=== PATIENT | female | born 1950 | race Caucasian/White ===

== ENCOUNTER 2019-01-08 14:03 | Inpatient (IN) | payer MEDICARE, BC ==
[~2019-01-08] VITALS: Ht 172.7 cm; Wt 57.2 kg
[2019-01-08] VITALS (7 sets, daily range): BP systolic 115–144; BP diastolic 50–69; BMI 19.2
[2019-01-08] MEDS ORDERED: HYDROCHLOROTHIA25 MG PO (14:10)
[2019-01-08] MEDS ORDERED: OXYBUTYNIN CHLOR5 MG PO (14:10)
[2019-01-08] MEDS ORDERED: PROZAC10 MG PO (14:10)
[2019-01-08] MEDS ORDERED: REMERON15 MG PO (14:11)
[2019-01-08] MEDS ORDERED: VALIUM5 MG PO (14:11)
[2019-01-08] MEDS ORDERED: LISINOPRIL20 MG PO (14:11)
[2019-01-08] MEDS ORDERED: TRAZODONE HCL150 MG PO (14:12)
[2019-01-08] MEDS ORDERED: HYDROCODON-ACE1 EAC7 PO (14:13)
--- NOTE | 2019-01-08 14:18 | NUR ---
THE PATIENT WAS FOUND WITH EMPTY BOTTLES OF TRAZODONE AND LISINOPRIL WELL A BOTTLE OF HYDROCODONE THAT IS FULL, THIS IS PER THE FAMILY. THE FAMILY STATES THAT THE PATIENT WAS ASKING FOR HER MEDS TO BE REFILLED, ACCORDING TO DATES ON THE BOTTLES THE PILLS DO ACTUALLY NEED TO BE REFILLED AND SHOULD BE GONE BY NOW. THE FAMILY GOES ON TO STATE THAT THE PATIENT HAS BEEN SUFFERING FROM DEPRESSION RECENTLY AND WAS FOUND WITH VOMIT AND STOOL ON HER ON THE FLOOOR.
[2019-01-08 14:59] LABS: BASOPHILS 0.1 % (0-2); EOSINOPHILS 0 % (0-7); HEMATOCRIT 41.2 % (36.0-48.0); HEMOGLOBIN 15.5 g/dL (12-16); IMMATURE GRANULOCYTES 0.3 % (0-5); LYMPHOCYTES 3.6 % (15-50); MCH 31.2 pg (26.0-34.0); MCHC 37.6 g/dL (31.0-37.0); MCV 82.9 fL (80.0-100.0); MEAN PLATELET VOLUME 9.9 fL (7.4-10.4); MONOCYTES 5.2 % (2-11); NEUTROPHILS 90.8 % (40-80); PLATELET COUNT 204 10x3/uL (130-400); RBC 4.97 10x6/uL (4.00-5.40); RDW 12.1 % (11.5-14.5)
[2019-01-08 15:06] LABS: APPEARANCE CLEAR (CLEAR); BILIRUBIN NEGATIVE (NEGATIVE); COLOR YELLOW (YELLOW); GLUCOSE 250 mg/dL (NEGATIVE); KETONE NEGATIVE (NEGATIVE); NITRITE NEGATIVE (NEGATIVE); PROTEIN NEGATIVE (NEGATIVE); SPECIFIC GRAVITY 1.015 (1.005-1.020); UROBILINOGEN NORMAL (NORMAL)
[2019-01-08 15:09] LABS: BACTERIA FEW /hpf (NONE SEEN); EPITHELIAL CELLS 0-5 /hpf (0-5); RED CELLS - URINE 0-5 /hpf (0-5); WHITE CELLS - URINE OCC /hpf (0-5)
[2019-01-08 15:15] LABS: ALKALINE PHOSPHATASE 72 U/L (46-116); ALT (SGPT) 24 U/L (10-68); BILIRUBIN - TOTAL 0.47 mg/dL (0.2-1.3); CALC OSMOLALITY 262 mosm/kg (275-300); CALCIUM 8.3 mg/dL (8.5-10.1); CARBON DIOXIDE 23.7 mmol/L (21.0-32.0); CHLORIDE - SERUM 91 mmol/L (98-107); CREATININE - SERUM 0.8 mg/dL (0.6-1.3); GLUCOSE 218 mg/dL (74-106); MAGNESIUM - SERUM 1.7 mg/dL (1.8-2.4); PROTEIN - SERUM 7.3 g/dL (6.4-8.2); SODIUM 127 mmol/L (136-145); UREA NITROGEN 15 mg/dL (7-18); eGFR NON AFRICAN AMERICAN 75 mL/min (90-120)
[2019-01-08 15:16] LABS: UDS - AMPHET NEGATIVE QUAL (NEGATIVE); UDS - BARB NEGATIVE QUAL (NEGATIVE); UDS - BENZO POSITIVE QUAL (NEGATIVE); UDS - COCAINE NEGATIVE QUAL (NEGATIVE); UDS - OPIATE NEGATIVE QUAL (NEGATIVE); UDS - PCP NEGATIVE QUAL (NEGATIVE); UDS - THC NEGATIVE QUAL (NEGATIVE)
[2019-01-08 15:20] LABS: POTASSIUM - SERUM 2.5 mmol/L (3.5-5.1)
[2019-01-08 16:04] LABS: CKMB 2.9 U/L (0.0-3.6); CREATINE KINASE 105 UL (21-215); TROPONIN-I 0.024 ng/mL (0.000-0.060)
--- NOTE | 2019-01-08 16:27 | NUR ---
FLU SWAB OBTAINED, LABELED AT BS AND SENT TO [facility]
--- NOTE | 2019-01-08 17:20 | NUR ---
VERIFIED D5LR ORDER WITH DR GUZMAN. INFORMED OF ELEVATED GLUCOSE AND + GLUCOSE IN URINE. DR GUZMAN ORDERED INSULIN AND CONTINUE WITH D5LR.
--- NOTE | 2019-01-08 17:40 | NUR ---
RIGHT NARE NGT REMOVED
--- NOTE | 2019-01-08 17:46 | NUR ---
SBAR REPORT GIVEN TO MARTHA KOHLER
--- NOTE | 2019-01-08 19:50 | NUR ---
PT RESTING QUIETLY. CALL LIGHT IN REACH. PT DENIES NEEDS OR PAIN AT THIS TIME. PT IS DROWSY BUT EASY TO AROUSE. LUNGS CLEAR. BOWEL ACTIVE X4. A/O X4. BED IN LOW. SIDE RAILS X2. BED ALARM ON. WILL CONTINUE TO MONITOR.
--- NOTE | 2019-01-09 | NUR ---
PT TEMP WAS 100.6. APPLIED COLD PACKS TO ARMPITS AND REMOVED 2 BLANKETS. PT STILL HAS ONE BLANKET ONE. WILL RECHECK IN ONE HOUR.
[2019-01-09 00:15] VITALS: BP 122/60
--- NOTE | 2019-01-09 01:30 | NUR ---
TEMP WAS 99.3.
--- NOTE | 2019-01-09 02:21 | NUR ---
I have reviewed this patient and I concur with the Shift Assessment completed by the Licensed Practical Nurse today this shift.
[2019-01-09 04:46] VITALS: BP 126/44
--- NOTE | 2019-01-09 05:11 | NUR ---
PT TEMP WAS 100.3. NEW ICE PACKS WERE PLACED UNDER ARMPITS. WILL RECHECK IN AN HOUR. ASSISTED TO BATHROOM AND BACK. WCTM
--- NOTE | 2019-01-09 06:29 | NUR ---
TEMP 98.9 AFTER APPLYING COLD PACKS
--- NOTE | 2019-01-09 08:30 | NUR ---
UP TO BR WITH MIN ASSIST OF ONE. GAIT STEADY. STATED SHE JUST FELT WEAK. VOIDED WITHOUT DIFFICULTY. REPOSITIONED IN BED FOR COMFORT.
--- NOTE | 2019-01-09 09:15 | NUR ---
OFF UNIT VIA FOR MRI
[2019-01-09 09:33] VITALS: BP 146/67
--- NOTE | 2019-01-09 10:04 | NUR ---
RETURNED FROM MRI. DENIES NEEDS. UP TO BR WITH ONE PERSON MIN ASSIST. BREAKFAST SERVED INROOM.
--- NOTE | 2019-01-09 10:17 | NUR ---
RESTING QUIETLY IN BED. FAMILY AT BEDSIDE. LUNGS ARE CLEAR BILATERALLY BUT SLIGHTLY DIMINISHED IN LOWER LOBES. REPORTED OCCASSIONALLY PRODUCTIVE COUGH WITH CLEAR SPUTUM. IV TO LEFT FOREARM IS PATENT WITHOUT REDNESS AT INSERTION SITE. DENIES NEEDS. FAMILY AT BEDSIDE.
[2019-01-09 10:23] VITALS: BMI 19.1
[2019-01-09 10:36] VITALS: Ht 172.7 cm; Wt 57.2 kg
[2019-01-09 11:20] LABS: CALC OSMOLALITY 265 mosm/kg (275-300); CALCIUM 8.9 mg/dL (8.5-10.1); CARBON DIOXIDE 25.9 mmol/L (21.0-32.0); CHLORIDE - SERUM 98 mmol/L (98-107); CREATININE - SERUM 0.8 mg/dL (0.6-1.3); GLUCOSE 131 mg/dL (74-106); MAGNESIUM - SERUM 1.7 mg/dL (1.8-2.4); POTASSIUM - SERUM 3.1 mmol/L (3.5-5.1); SODIUM 133 mmol/L (136-145); UREA NITROGEN 8 mg/dL (7-18); eGFR NON AFRICAN AMERICAN 75 mL/min (90-120)
[2019-01-09 11:24] LABS: BASOPHILS 0 % (0-2); EOSINOPHILS 0.2 % (0-7); HEMATOCRIT 38.7 % (36.0-48.0); HEMOGLOBIN 14.1 g/dL (12-16); MCH 30.7 pg (26.0-34.0); MCHC 36.4 g/dL (31.0-37.0); MCV 84.1 fL (80.0-100.0); MEAN PLATELET VOLUME 9.9 fL (7.4-10.4); MONOCYTES 9.3 % (2-11); NEUTROPHILS 77.5 % (40-80); PLATELET COUNT 196 10x3/uL (130-400); RDW 12.3 % (11.5-14.5)
[2019-01-09 11:34] LABS: WBC 5.7 10x3/uL (4.8-10.8)
[2019-01-09 12:04] VITALS: BP 145/80
[2019-01-09 18:15] VITALS: BP 143/49
[2019-01-09] MEDS ORDERED: SYNTHROID75 MCG PO (19:06)
--- NOTE | 2019-01-09 19:25 | NUR ---
AAOX4. WHEN ENTERING ROOM. PT STATES SHE HAS BEEN RESTING WELL. DENIES VOMITTING SINCE "SATURDAY". DENIES ABDOMINAL PAIN AT THIS TIME. HAT IN RESTROOM AND SPOKE WITH PT ABOUT OBTAINING STOOL SAMPLE. PT VERBALIZED UNDERSTANDING. LEFT FOREARM IV IS SALINE LOCKED. NO REDNESS. PT ASKS NOT TO BE WOKEN UP IN THE NIGHT. CALL LIGHT IN HAND.
[2019-01-09 20:27] VITALS: BP 131/45
--- NOTE | 2019-01-09 20:56 | NUR ---
VITAL SIGNS PRESENT WITH 99.4 TEMPERATURE. ADMINISTERED 650 MG PRN TYLENOL. PT TOLERATED WELL. SON AND DAUGHTER AT BEDSIDE. DENIES NEEDS AT THIS TIME.
--- NOTE | 2019-01-10 04:11 | NUR ---
I have reviewed this patient and I concur with the Shift Assessment completed by the Licensed Practical Nurse today this shift.
[2019-01-10 05:28] VITALS: BP 130/77
[2019-01-10 06:54] LABS: BASOPHILS 0.6 % (0-2); EOSINOPHILS 0.2 % (0-7); HEMATOCRIT 39.8 % (36.0-48.0); HEMOGLOBIN 14.1 g/dL (12-16); IMMATURE GRANULOCYTES 0.2 % (0-5); LYMPHOCYTES 21.4 % (15-50); MCH 30.7 pg (26.0-34.0); MCHC 35.4 g/dL (31.0-37.0); MEAN PLATELET VOLUME 10.3 fL (7.4-10.4); MONOCYTES 9.5 % (2-11); NEUTROPHILS 68.1 % (40-80); PLATELET COUNT 191 10x3/uL (130-400); RBC 4.59 10x6/uL (4.00-5.40); RDW 12.7 % (11.5-14.5)
[2019-01-10 06:59] LABS: MCV 86.7 fL (80.0-100.0)
[2019-01-10 07:08] LABS: CALCIUM 8.7 mg/dL (8.5-10.1); CARBON DIOXIDE 27.9 mmol/L (21.0-32.0); CHLORIDE - SERUM 103 mmol/L (98-107); CREATININE - SERUM 0.8 mg/dL (0.6-1.3); GLUCOSE 94 mg/dL (74-106); SODIUM 138 mmol/L (136-145); eGFR NON AFRICAN AMERICAN 75 mL/min (90-120)
[2019-01-10 07:12] LABS: CALC OSMOLALITY 275 mosm/kg (275-300); POTASSIUM - SERUM 3.9 mmol/L (3.5-5.1); UREA NITROGEN 12 mg/dL (7-18)
[2019-01-10 07:49] VITALS: BP 150/73
--- NOTE | 2019-01-10 08:01 | NUR ---
RESUMING PT CARE, PT LAYING IN BED WITH EYES OPEN, ALERT AND ORIENTED X3, CALL LIGHT IN REACH. WILL CONTINUE TO MONITOR AND FOLLOW PLAN OF CARE.
[2019-01-10 11:21] VITALS: BP 136/67
--- NOTE | 2019-01-10 14:26 | MORECARE ---
CASE MANAGEMENT DISCHARGE SUMMARY PATIENT: JAVON MALIK UNIT: [id number] ADM DATE: 01/09/19 AGE: 68 : 49 SEX: F ROOM/BED: D.1207 AUTHOR: JACLYN SHOEMAKER PHYSICIAN: REFERRING PHYSICIAN: ALANA GARCIA MD DATE OF SERVICE: 01/10/19 Discharge Plan Patient Name: JAVON MALIK Facility: [facility]:[place] : 1950 Planned Disposition: Home Anticipated Discharge Date: Discharge Date: Expected LOS: Initial Reviewer: [email or web address] Initial Review Date: 01/10/2019 Generated: 01/10/19 3:26 pm Patient Name: JAVON MALIK Page [phone] at 1426 All edits/amendments must be made on the electronic document DICTATION DATE: 01/10/19 142 CRINKLING MACHINE OPERATOR: ZULEIKA 01/10/19 1426 RPT#: [id number] DC DATE: STATUS: ADM IN [facility] [address] [place] [address] END OF REPORT
--- NOTE | 2019-01-10 14:34 | MORECARE ---
CASE MANAGEMENT DISCHARGE SUMMARY PATIENT: JAVON RIVERO UNIT: [id number] ADM DATE: 01/09/19 AGE: 68 : 49 SEX: F ROOM/BED: D.1207 AUTHOR: NAVID,DOC PHYSICIAN: REFERRING PHYSICIAN: ALANA GARCIA MD DATE OF SERVICE: 01/10/19 Discharge Plan Patient Name: JAVON RIVERO Facility: [facility]:[place] : 1950 Planned Disposition: Home Anticipated Discharge Date: Discharge Date: Expected LOS: Initial Reviewer: [email or web address] Initial Review Date: 01/10/2019 Generated: 01/10/19 3:34 pm Comments DCP- Discharge Planning Updated by [email or web address]: Katie Calderón on 01/10/19 1:[address] Patient Name: JAVON RIVERO Admission Status: ER Accout number: [id number] Admission Date: 01-09-2019 : 1950 Admission Diagnosis: Attending: ALANA GARCIA Current LOS: 1 Anticipated DC Date: Planned Disposition: Home Primary Insurance: MEDICARE A & B Discharge Planning Comments: CM met with patient about discharge planning. CM explained CM role and verbal consent was given to do dc assessment. CM educated on Home Health , DME and rehab services that are available. Patient states her discharge plan is to return to home with spouse. States home environment is safe. Denies any discharge planning needs at this time. States codi Robert [phone]) will drive her home upon discharge. CM will continue to follow and assist as needed with discharge planning needs. Trim Mechanic: Katie Calderón DCPIA - Discharge Planning Initial Assessment Updated by [email or web address]: Katie Calderón on 01/10/19 2:29 pm * Is the patient Alert and Oriented? Yes * How many steps to enter\exit or inside your home? * PCP DR JEFFERSON * Pharmacy [facility] [place] * Preadmission Environment Home with Family * ADLs Independent * List name and contact numbers for known caregivers / representatives who currently or will assist patient after discharge: Codi Rivero [phone] * Verbal permission to speak to the caregivers and representatives has been obtained from the patient. Yes * Community resources currently utilized None * Additional services required to return to the preadmission environment? No * Can the patient safely return to the preadmission environment? Yes * Has this patient been hospitalized within the prior 30 days at any hospital? No Last DP export: 01/10/19 1:26 p Patient Name: JAVON RIVERO Page [phone] at 1434 All edits/amendments must be made on the electronic document DICTATION DATE: 01/10/191432 SALES COORDINATOR: ZULEIKA 01/10/191432 RPT#: [id number] DC DATE: STATUS: ADM IN [facility] [address] [place] [address] END OF REPORT
--- NOTE | 2019-01-10 14:49 | NUR ---
RESTING QUIETLY IN BED. CALL LIGHT WITHIN REACH. DENIES ANY NEEDS AT THIS TIME.
[2019-01-10 15:38] VITALS: BP 130/65
--- NOTE | 2019-01-10 19:30 | NUR ---
ALERT AND ORIENTED. STATES "I HAD A BETTER DAY TODAY." INSTRUCTED PT ON STOOL SAMPLES. VERBALIZES UNDERSTANDING. SALINE LOCKED IV TO THE LEFT FOREARM. DENIES NEEDS. V/S/S AT THIS TIME. CALL LIGHT IN REACH OF PATIENT.
[2019-01-10 20:01] VITALS: BP 148/70
[2019-01-11] VITALS: BP 118/50
[2019-01-11 00:50] VITALS: BP 118/50
--- NOTE | 2019-01-11 01:18 | NUR ---
I have reviewed this patient and I concur with the Shift Assessment completed by the Licensed Practical Nurse today this shift.
--- NOTE | 2019-01-11 04:49 | NUR ---
PT RESTING WHEN ENTERING THE ROOM. AROUSES TO VERBAL STIMULI. DENIES NEEDS AT THIS TIME. CALL LIGHT IN REACH.
[2019-01-11 05:00] VITALS: BP 165/87
[2019-01-11 06:21] LABS: BASOPHILS 0.4 % (0-2); EOSINOPHILS 0.9 % (0-7); HEMATOCRIT 39.1 % (36.0-48.0); HEMOGLOBIN 13.8 g/dL (12-16); IMMATURE GRANULOCYTES 0.2 % (0-5); LYMPHOCYTES 22.1 % (15-50); MCH 30.7 pg (26.0-34.0); MCHC 35.3 g/dL (31.0-37.0); MCV 87.1 fL (80.0-100.0); MEAN PLATELET VOLUME 10.1 fL (7.4-10.4); MONOCYTES 8.9 % (2-11); NEUTROPHILS 67.5 % (40-80); PLATELET COUNT 180 10x3/uL (130-400); RBC 4.49 10x6/uL (4.00-5.40); RDW 12.6 % (11.5-14.5); WBC 5.5 10x3/uL (4.8-10.8)
[2019-01-11 06:33] LABS: ANION GAP 8.8 mmol/L (8-16); CALCIUM 8.5 mg/dL (8.5-10.1); CARBON DIOXIDE 29.9 mmol/L (21.0-32.0); CREATININE - SERUM 0.9 mg/dL (0.6-1.3); POTASSIUM - SERUM 3.7 mmol/L (3.5-5.1)
--- NOTE | 2019-01-11 08:00 | NUR ---
PATIENT ALERT AND OREINTED THIS MORNING. ATE 100% OF BREAKFAST. NO COMPLAINTS OF PAIN OR DISCOMFORT. SALINE LOCK TO LEFT FOREARM PATENT. ASKING ABOUT GOING HOME TODAY. TOLD HER WOULD CHECK AND SEE IF THIS WAS POSSIBLE. CALL LIGHT WITHIN REACH. WILL CONTINUE TO MONITOR.
[2019-01-11 08:09] VITALS: BP 160/88
[2019-01-11] MEDS ORDERED: LEVOFLOXACIN500 MG PO (08:54)
--- NOTE | 2019-01-11 10:05 | NUR ---
PT'S PHARMACY CLOSED TODAY. RX FOR LEVAQUIN CALLED TO [facility].
--- NOTE | 2019-01-11 11:00 | NUR ---
PATIENT TO BE DISCHARGED. DISCHARGE INSTRUCTIONS GIVEN. LIST OF MEDICATIONS GIVEN AND INFORMED HER THAT HER ANTIBIOTIC WAS CALLED IN TO [facility].
--- NOTE | 2019-01-11 11:15 | NUR ---
PATIENT DISCHARGED FROM UNIT VIA WHEELCHAIR ACCOMPAINED BY HOSPITAL STAFF. HERE TO TAKE HER HOME.
[2019-01-12] MEDS ORDERED: PROZAC10 MG PO (15:06)
[2019-01-12] MEDS ORDERED: PROZAC10 MG (15:08)
== END 2019-01-11 11:15 | disposition home or self-care (01) | DRG 640 ==
LOC: D.ER 14:03 → D.M3 17:22 → OBSVTIME 17:22 → D.EDHOLD 18:21 → D.M3 18:22
PROVIDERS: Emergency Medicine; ADMIT Internal Medicine Nephrology; ATTEND Internal Medicine Nephrology
DX: E87.1 Hypo-osmolality and hyponatremia (principal); K76.3 Infarction of liver; G93.41 Metabolic encephalopathy; N39.0 Urinary tract infection, site not specified; F17.213 Nicotine dependence, cigarettes, with withdrawal; R55 Syncope and collapse; R73.9 Hyperglycemia, unspecified; E87.6 Hypokalemia; E83.42 Hypomagnesemia; E86.0 Dehydration

== ENCOUNTER 2019-01-12 14:18 | Inpatient (IN) | payer MEDICARE, BC ==
[~2019-01-12 14:18] MED LIST: HYDROCHLOROTHIA25 MG PO; HYDROCODON-ACE1 EAC7 PO; LEVOFLOXACIN500 MG PO; LISINOPRIL20 MG PO; OXYBUTYNIN CHLOR5 MG PO; PROZAC10 MG PO; REMERON15 MG PO; SYNTHROID75 MCG PO; TRAZODONE HCL150 MG PO; VALIUM5 MG PO
--- NOTE | 2019-01-12 14:25 | NUR ---
PT IS ADMITTED TO RESIDENTIAL DUE TO SUICIDAL IDEATION. PT TOOK TWO BOTTLES OF [place] MEDICATIONS AT HOME PER PT AND PT'S FAMILY. PT IS ALERT AND ORIENTED X 4. PT. HAS HX OF SEVERE ANXIETY AND DEPRESSION. PT CODEWORD IS KATHERINE3. PT IS FULL CODE AT THIS TIME. PT STATES WANTS TO DISCUSS CODE STATUS WITH FAMILY DURING VISITATION TOMORROW. PT APPEARED VERY ANXIOUS UPON ARRIVAL TO UNIT. TOUR OF UNIT PROVIDED TO PT AND FAMILY. ADMIT PACKET DISCUSSED AND REVIEWED WITH PT. AND FAMILY. WILL CPOC.
[2019-01-12] MEDS ORDERED: PROZAC10 MG PO (15:06)
[2019-01-12] MEDS ORDERED: PROZAC10 MG (15:08)
[2019-01-12 15:30] LABS: BASOPHILS 0.3 % (0-2); EOSINOPHILS 0.2 % (0-7); HEMATOCRIT 42.2 % (36.0-48.0); HEMOGLOBIN 15.5 g/dL (12-16); IMMATURE GRANULOCYTES 0.2 % (0-5); LYMPHOCYTES 9.5 % (15-50); MCHC 36.7 g/dL (31.0-37.0); MEAN PLATELET VOLUME 9.8 fL (7.4-10.4); MONOCYTES 8.7 % (2-11); NEUTROPHILS 81.1 % (40-80)
[2019-01-12 15:49] LABS: MCV 84.4 fL (80.0-100.0); PLATELET COUNT 232 10x3/uL (130-400); WBC 8.7 10x3/uL (4.8-10.8)
[2019-01-12 15:50] VITALS: BP 152/99; BMI 19.6
[2019-01-12 16:00] LABS: ALBUMIN 4.1 g/dL (3.4-5.0); ANION GAP 15.8 mmol/L (8-16); BILIRUBIN - TOTAL 0.47 mg/dL (0.2-1.3); CALCIUM 9.3 mg/dL (8.5-10.1); CARBON DIOXIDE 26.3 mmol/L (21.0-32.0); CHOL - HDL RATIO 2.9 ratio (2.3-4.1); CREATININE - SERUM 0.9 mg/dL (0.6-1.3); LDL-HDL RATIO 1.6 ratio (1.5-3.5); PROTEIN - SERUM 7.2 g/dL (6.4-8.2); THYROID STIMULATING HORMONE 4.53 uIU/mL (0.36-3.74)
[2019-01-12 16:01] LABS: POTASSIUM - SERUM 3.1 mmol/L (3.5-5.1)
[2019-01-12 20:22] VITALS: BP 147/84
--- NOTE | 2019-01-12 21:32 | NUR ---
RECEIVED IN PATIENT ROOM. GETTING READY FOR BED. CALM AND COOPERATIVE WITH CARE AND ASSESSMENT. DENIES THOUGHTS OF SELF HARM AT THIS TIME. REDIRECT AND REORIENT NEEDED. RESTING IN BED WITH EYES CLOSED AT THIS TIME. CONTINUE PLAN OF CARE.
[2019-01-13 07:22] LABS: RAPID PLASMA REAGIN Non Reactive (Non Reactive); VITAMIN D 25 HYDROXY 26.8 ng/mL (30.0-100.0)
--- NOTE | 2019-01-13 08:00 | NUR ---
REC'D PT AWKAE IN ROOM. ALERT AND ORIENTED X 4. CALM AND COOPERATIVE WITH ASSESSMENT. PT DENIES ANY SELF HARM AT THIS TIME. REDIRECT AND REORIENT NEEDED. MED COMPLIANT. FALL PRECAUTIONS IN PLACE. WILL CPOC.
[2019-01-13 08:15] VITALS: BP 156/75
[2019-01-13 08:24] VITALS: BMI 19.6
[2019-01-13 10:00] VITALS: BMI 19.5
[2019-01-13 10:14] LABS: FOLATE (FOLIC ACID) - SERUM 18.6 ng/mL (>3.0)
--- NOTE | 2019-01-13 10:52 | NUR ---
ATTEMPTED TO CALL AND DAUGHTER TO BRING PT HARD SOLE SHOES, NO ANSWER. THIS NURSE PROVIDED PT WITH SLIPPER SOCKS AND LOCKED FLIP FLOPS IN STORAGE ROOM FOR SAFETY. FALL EDUCATION PROVIDED PER STAFF. WILL CPOC.
[2019-01-13 20:21] VITALS: BP 123/73
--- NOTE | 2019-01-14 00:23 | NUR ---
RECEIVED IN DAYROOM. SOCIALIZING WITH PEERS. CALM AND COOPERATIVE WITH CARE AND ASSESSMENT. DENIES THOUGHTS OF SELF HARM. REDIRECT AND REORIENT NEEDED. RESTING IN BED WITH EYES CLOSED AT THIS TIME. CONTINUE PLAN OF CARE.
--- NOTE | 2019-01-14 07:30 | NUR ---
REC'D PT IN BED RESTING WITH EYES OPEN. ALERT AND ORIENTED X 4. CALM AND COOPERATIVE WITH ASSESSMENT. NO SI NOTED OR VOICED. PT DENIES ANY FEELINGS OF SELF HARM. MED COMPLIANT. FALL PRECAUTIONS IN PLACE. WILL CPOC.
[2019-01-14 08:19] VITALS: BP 147/87
--- NOTE | 2019-01-14 16:38 | PSY ---
PATIENT NAME:JAVON MALIK MEDICAL RECORD: [id number] : [birth year] LOCATION:[facility] ADMISSION DATE: 01/12/19 ACCOUNT: [id number] PSYCHIATRIC EVALUATION DATE OF EVALUATION: 01/12/19 IDENTIFYING DATA: The patient is 68 years old and she is admitted to the hospital on a voluntary basis. CHIEF COMPLAINT: Depression. HISTORY OF PRESENT ILLNESS: The patient is a very nice lady who is displaying a high degree of distress. She is followed on an outpatient basis by my friend and colleague, Dr. Maria De Jesus Stevenson, in [place]. Dr. Stevenson has been seeing her for therapy and pharmacologic management. Dr. Stevenson called me last week and told me this patient was going to be showing up in the Emergency Room with an overdose. I never heard from the patient. As it turns out, she actually did show up in the Emergency Room, but she did not tell the Emergency Room doctor that she had taken an overdose, so she was simply admitted to the hospital because of nausea, vomiting, and diarrhea. Apparently, she had been found lying on the floor by her . There were some empty pill bottles in her hand and she was lethargic, but the patient said she was not trying to overdose and she was trying to call the pharmacy to have the medicines refilled. At any rate, she was hospitalized here and apparently presented well enough and convincingly enough that mental health was not contacted. The patient tells me now that she did try to overdose and kill herself on and is very ashamed and tearful about the situation. After being discharged from the hospital, her family was calling, saying she was curled up in a ball in the corner, crying, shaking, and talking about wanting to . They called Dr. Stevenson, who called me and I told her I would accept her as an inpatient. The patient admits to all of this. She endorses numerous vegetative depressive symptoms and is extremely anxious. She is shaking visibly. She is slightly hypertensive, but is not tachycardic. She is not febrile. She is denying any overt psychotic symptoms. PAST MEDICAL HISTORY: Significant for hypertension. She also has history of hypothyroidism, and has had a cholecystectomy and a hysterectomy. PAST PSYCHIATRIC HISTORY: Significant for a previous episode of severe depression in 1994. She did not require hospitalization at that time. She was stabilized on an outpatient basis. Her psychiatrist retired and then she did not begin seeing another one, and her primary care physician took over prescribing her medicines. FAMILY HISTORY: Significant for hypertension and cardiovascular disease. ALLERGIES: ERYTHROMYCIN. CURRENT MEDICATIONS: Include Ditropan, Prozac, hydrochlorothiazide, Remeron, Valium, lisinopril, trazodone, and hydrocodone. MENTAL STATUS EXAMINATION: The patient is awake; alert; and oriented to person, place, time, and situation. Her mood is depressed. Her affect is constricted. Thought processes are circumstantial. Memory, concentration, and abstraction abilities are mildly impaired. She denies any active intent to harm herself or others as well as any psychotic symptoms. SOCIAL HISTORY: The patient is . She has 3 adult children, 2 boys and a daughter, all of whom live in this area. 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 She has no history of drug or alcohol abuse and apparently functioned well socially and occupationally. ASSETS: Supportive family members. LIABILITIES: Limited insight. DIAGNOSTIC IMPRESSION: AXIS I: 1. Major depression, severe, recurrent without psychotic features. 2. Generalized anxiety disorder. AXIS II: Cluster C personality traits. AXIS III: Hypertension and hypothyroidism. AXIS IV: Moderate. AXIS V: Global assessment of functioning is 40. PLAN: At this time, the patient is admitted to the hospital secondary to a recent suicide attempt, ongoing thoughts of self-harm, and overwhelming anxiety and depression. She will be comprehensively evaluated and treated from both medical, psychological, and social standpoint. Her long-term prognosis is guarded. TRANSINT:[id number] Voice Confirmation ID: [id number] DOCUMENT ID: [id number] JANET DAS MD at 1638 CC: [id number] DICTATION DATE: 01/12/19 1717 POLICE OR PATROL PARK OFFICER: 01/12/19 1750 ADM IN [place] [address] [place] [address]
--- NOTE | 2019-01-14 16:38 | PN ---
PATIENT:JAVON MALIK MEDICAL RECORD: [id number] LOCATION:[facility] ADMISSION DATE: 01/12/19 PROGRESS NOTE DATE OF SERVICE: 01/13/2019 SUBJECTIVE: The patient's case was discussed with staff. She has no new complaint. OBJECTIVE: The patient is dramatically better. She slept last night. She ate a good dinner and a good breakfast. She is not shaking. She is talking to me in old coherent sentences. ASSESSMENT: 1. Major depression. 2. Generalized anxiety disorder. PLAN: Current medicines have been reviewed. I am going to reduce the dose of the Klonopin secondary to concerns about some excessive sedation that might be developing. She has dramatically improved indicating that most of her difficulties are probably related to anxiety. TRANSINT:[id number] Voice Confirmation ID: [id number] DOCUMENT ID: [id number] JANET DAS MD at 1638 CC: [id number] DICTATION DATE: 01/13/19 1453 DOUBLE END TENON OPERATOR: 01/13/19 1616 ADM IN [place] [address] [place] [address]
[2019-01-14 20:04] VITALS: BP 148/78
--- NOTE | 2019-01-14 20:26 | NUR ---
RECEIVED IN DAYROOM. SITTING IN RECLINER AND WATCHING TV. CALM AND COOPERATIVE WITH CARE AND ASSESSMENT. DENIES THOUGHTS OF SELF HARM. REDIRECT AND REORIENT NEEDED. CONTINUES TO SIT AND WATCH TV WITH PEERS AT THIS TIME. CONTINUE PLAN OF CARE.
--- NOTE | 2019-01-15 09:22 | NUR ---
RECEIVED PATIENT IN DINING ROOM FOR B'FAST, ALERT, ORIENTED, CALM, COOPERATIVE, NO SUICIDAL STATEMENTS MADE. MEDS ADMIN PER ORDERS WITH COMPLETE MED COMPLIANCE NOTED. COOPERATIVE WITH GROUP AND STAFF REQUESTS. CONT POC INCLUDING MEDS AND GROUP THERAPY DIRECTED.
--- NOTE | 2019-01-15 15:31 | PN ---
PATIENT:JAVON MALIK MEDICAL RECORD: [id number] LOCATION:[facility] ADMISSION DATE: 01/12/19 PROGRESS NOTE DATE OF SERVICE: 01/14/2019 SUBJECTIVE: The patient's case was discussed with staff. She has no new complaint. OBJECTIVE: The patient is dramatically calmer than she has been. She gives me some additional history that I think has probably been withheld from me deliberately. She tells me that she has been on Klonopin for 25 years and that is the only thing that has helped her anxiety. Clearly, she has some history of use of this drug and she tells me that she is very calm now that she has been receiving it. She has no thoughts of harming herself. Fairly extensive supportive and therapeutic interventions were made. ASSESSMENT: 1. Major depression. 2. Generalized anxiety disorder. PLAN: The patient is going to be going to have her Effexor discontinued and will be started on a higher dose of the medication twice daily. TRANSINT:[id number] Voice Confirmation ID: [id number] DOCUMENT ID: [id number] JANET DAS MD at 1531 CC: [id number] DICTATION DATE: 01/14/19 1720 REHABILITATION COORDINATOR: 01/14/19 2339 ADM IN [place] [address] [place] [address]
[2019-01-15 19:51] VITALS: BP 135/61
--- NOTE | 2019-01-16 04:52 | NUR ---
B) Patient is alert and oriented X 3, calm and cooperative this shift, keeps to herself, I) Administered scheduled medications as ordered, monitored for safety R) Mediation compliant, no S.I. this shift, P) Continue plan of care.
[2019-01-16 09:23] VITALS: BP 143/96
--- NOTE | 2019-01-16 10:15 | NUR ---
RECEIVED PATIENT IN DING ROOM FOR B'FAST, ALERT, CALM, ORIENTED, QUIET. MEDS ADMIN PER ORDERS WITH COMPLETE MED COMPLIANCE NOTED. COOPERATIVE WITH GROUP AND STAFF REQUESTS. CONT POC INCLUDING MEDS AND GROUP THERAPY DIRECTED.
--- NOTE | 2019-01-16 12:02 | PN ---
PATIENT:JAVON MALIK MEDICAL RECORD: [id number] LOCATION:[facility] ADMISSION DATE: 01/12/19 PROGRESS NOTE DATE OF SERVICE: 01/15/2019 SUBJECTIVE: The patient's case was discussed with staff. She has no new complaint. OBJECTIVE: The patient is not having any thoughts of harming herself or others. She is tolerating her medications well. She has pretty limited insight about her situation, but did sleep well last night. ASSESSMENT: No change in diagnoses. PLAN: I am going to increase the patient's Effexor, probably tomorrow to a total of 200 mg. I know this is an aggressive titration, but I think it is indicated. I am concerned that she is going to be insisting upon discharge after today. She really does not feel that she fits in with the unit, which is probably true since everyone else has dementia, but I have encouraged her to stay and participate and she follow those instructions to this point. I am feeling more comfortable about her situation. She clearly did make a suicide attempt a little over a week ago and I think that the progress she has made in the past few days is a very significant. TRANSINT:[id number] Voice Confirmation ID: [id number] DOCUMENT ID: [id number] JANET DAS MD at 1202 CC: [id number] DICTATION DATE: 01/15/19 1550 WIRELINE OPERATOR: 01/15/19 1559 ADM IN [place] [id number] [place] [address]
[2019-01-16 20:28] VITALS: BP 149/76
[2019-01-17 08:53] VITALS: BP 161/64
--- NOTE | 2019-01-17 10:20 | PN ---
PATIENT:JAVON MALIK MEDICAL RECORD: [id number] LOCATION:[facility] ADMISSION DATE: 01/12/19 PROGRESS NOTE DATE OF SERVICE: 01/16/2019 SUBJECTIVE: The patient's case was discussed with staff. She has no new complaint. OBJECTIVE: The patient is significantly better. She is much less anxious. ASSESSMENT: 1. Major depression. 2. Generalized anxiety. PLAN: The patient tells me her visit yesterday with family went well. I anticipate she can be discharged soon. I would like to visit with the social media assistant who had a family session with her and her family yesterday, but that individual is not on the unit right now. If she backs up what the patient is telling me, I anticipate she can be transitioned out of the hospital soon. TRANSINT:[id number] Voice Confirmation ID: [id number] DOCUMENT ID: [id number] JANET DAS MD at 1020 CC: [id number] DICTATION DATE: 01/16/19 1229 CUSHION STUFFER: 01/16/19 1313 ADM IN [facility] [address] [place] [address]
[2019-01-17] MEDS ORDERED: KLONOPIN1 MG PO (11:34)
[2019-01-17] MEDS ORDERED: EFFEXOR100 MG PO (11:34)
[2019-01-17] MEDS ORDERED: LISINOPRIL10 MG PO (11:34)
[2019-01-17] MEDS ORDERED: VITAMIN D5000 UNIT PO (11:35)
[2019-01-17] MEDS ORDERED: LEVOXYL100 MCG PO (11:35)
[2019-01-17] MEDS ORDERED: K-DUR20 MEQ PO (11:35)
[2019-01-17] MEDS ORDERED: METAMUCIL PACKE1 PKT PO (11:35)
--- NOTE | 2019-01-17 18:41 | NUR ---
IS ORIENTED X 4.COMPLIANT WITH STAFF AND MEDS.TALKS WITH PEERS.WILL CONTINUE WITH PLAN OF CARE,MONITOR FOR CHANGES AND SAFETY.
[2019-01-17 20:12] VITALS: BP 155/76
--- NOTE | 2019-01-18 07:30 | NUR ---
PT IS ALERT AND ORIENTED X 4. CALM AND COOPERATIVE WITH ASSESSMENT. PT DENIES ANY SELF HARM AT THIS. NO SI NOTED. MED COMPLIANT. WILL CPOC.
[2019-01-18 08:29] VITALS: BP 145/74
--- NOTE | 2019-01-18 10:56 | PN ---
PATIENT:JAVON MALIK MEDICAL RECORD: [id number] LOCATION:[facility] ADMISSION DATE: 01/12/19 PROGRESS NOTE DATE OF SERVICE: 01/17/2019 SUBJECTIVE: The patient's case was discussed with staff. She has no new complaint. OBJECTIVE: The patient denies intent to harm herself or others. She is tolerating her medicines well. ASSESSMENT: No change in diagnoses. PLAN: Supportive and educational interventions were made. The patient is wanting to be discharged again today and I will allow this to happen if she continues to show improvement. In fact, I am going to put in a tentative discharge for tomorrow. TRANSINT:[id number] Voice Confirmation ID: [id number] DOCUMENT ID: [id number] JANET DAS MD at 1056 CC: [id number] DICTATION DATE: 01/17/19 1133 DIE REAMER: 01/17/19 1149 ADM IN [facility] [address] [place] [address]
--- NOTE | 2019-01-18 13:30 | NUR ---
PT DC HOME WITH . MEDS CALLED INTO [facility]. SPOKE WITH HOOD AT PHARMACY. ALL PAERWORK REVIEWED WITH PT AND . COPY OF PAPERWORJ SENT WITH PT. NO S/SX OF DISTRESS NOTED. PT DENIES ANY THOUGHTS OF SELF HARM. NO SI NOTED OR VOICED.
--- NOTE | 2019-01-19 14:46 | PN ---
PATIENT:JAVON MALIK MEDICAL RECORD: [id number] LOCATION:[facility] ADMISSION DATE: 01/12/19 PROGRESS NOTE DATE OF SERVICE: 01/18/2019 SUBJECTIVE: The patient's case was discussed with staff. She has no new complaint. OBJECTIVE: The patient denies intent to harm herself or others. She tolerates her medicines well. She is very much wanting to go home. Her youngest son, who has been out of town for a while, apparently at a conference in [place], has returned and she wants to see him ASSESSMENT: 1. Major depression. 2. Generalized anxiety disorder. PLAN: The patient will be discharged on current medicines. Her long-term prognosis is guarded. TRANSINT:[id number] Voice Confirmation ID: [id number] DOCUMENT ID: [id number] JANET DAS MD at 1446 CC: [id number] DICTATION DATE: 01/18/19 1130 SOCIAL MEDIA COMMUNITY MANAGER: 01/18/192008 DIS IN 01/18/19 [place] [address] [id number] [place] [address]
--- NOTE | 2019-01-21 15:45 | DS ---
PATIENT:JAVON MALIK :48 MEDICAL RECORD: [id number] DISCHARGE SUMMARY ADMISSION DATE: 01/12/19 DISCHARGE DATE: 01/18/19 IDENTIFYING DATA: The patient is 68 years old and she was admitted to the hospital on a voluntary basis because of depression. The patient had made a recent suicide attempt, although she misled others about what she had done. She freely admitted to me that she had tried to kill herself. She was extremely anxious and endorsed numerous neurovegetative depressive symptoms. HOSPITAL COURSE: The patient was admitted to the hospital and fully evaluated from both a medical, psychological, and social standpoint. She was found to be severely depressed as well as suffering from a serious anxiety disorder. The anxiety disorder is longstanding and she confessed to me that she had been taking Klonopin for about 25 years. She had no evidence of alcohol use. She had numerous neurovegetative depressive symptoms. The patient was given Klonopin for her anxiety and had a dramatic and almost immediate improvement that lasted throughout the course of the hospitalization. She was also started on Effexor that was titrated upward as tolerated and she had improvement in her mood state. She had several days of no thoughts of self-harm and asked to be discharged on Saturday afternoon. She subsequently was discharged at her request even though I suspect she would have stayed longer had I insisted or urged her to do so. She did not meet criteria for an involuntary hold at that time. DISCHARGE DIAGNOSES: AXIS I: Major depression, severe and recurrent without psychotic features and generalized anxiety disorder. AXIS II: Cluster C personality traits. AXIS III: Hypertension, hypothyroidism. AXIS IV: Moderate. AXIS V: Global Assessment Of Functioning is 45. PLAN: The patient was slightly hypothyroid and had an increase in her Synthroid medication. She was also discharged on both the Effexor and Klonopin. She was scheduled for a followup appointment with her outpatient psychiatrist. She is very much interested in individual psychotherapy on a weekly basis. She is going to discuss this with her outpatient psychiatrist to see if it is something that she can provide or if she needs to make a referral. I think the patient's prognosis is somewhat guarded. I am encouraged by the dramatic improvement she made with the use of the Klonopin and ordinarily would not consent to long-term use of that medicine, but given the fact that she has no history of addiction or abuse with it and she has been on it for 25 years, I think it is fine for the time being. I think her prognosis is going to be largely contingent upon medication compliance and participation in outpatient therapy and outpatient mental health followup. 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
== END 2019-01-18 13:30 | disposition home or self-care (01) | DRG 885 ==
LOC: D.PSYCH 14:18
PROVIDERS: ADMIT Psychiatry & Neurology Psychiatry; ATTEND Psychiatry & Neurology Psychiatry
DX: F33.2 Major depressive disorder, recurrent severe without psychotic features (principal); N39.0 Urinary tract infection, site not specified; R45.851 Suicidal ideations; F41.1 Generalized anxiety disorder; I10 Essential (primary) hypertension; E03.9 Hypothyroidism, unspecified; E87.6 Hypokalemia; E55.9 Vitamin D deficiency, unspecified; Z72.0 Tobacco use